=== PATIENT | female | born 1985 | race Caucasian/White ===

== ENCOUNTER 2017-07-20 04:48 | Inpatient (IN) | payer OTHER ==
[~2017-07-20] VITALS: Ht 152.4 cm; Wt 62.0 kg
[~2017-07-20 04:48] MED LIST: AMPHETAMINE SAL20 MG PO; OMEPRAZOLE40 MG PO; ONDANSETRON ODT4 MG PO; PAROXETINE HCL40 MG PO; PRENA1 CHEW TA1.4 MG PO; THERALITH XR T1 EACH PO
--- NOTE | 2017-07-21 12:54 | PR ---
[facility] [address] [place], [place] [address] Signed PP Progress Notes Datetime Report Generated by CPN: 07/21/2017 12:54 SUBJECTIVE: [id number] Pain: Within normal limits Nausea/Vomiting: Denies Flatus: Yes Bowel Movement: Yes Vital Signs: [id number] Vital Signs: Reviewed; Within Normal Limits EXAM: [id number] Cardiovascular: Normal Respiratory: Normal Abdomen/Uterus: Normal Lochia: Normal Vulva/Perineum: Normal Breasts: Normal CVA Tenderness: Normal Extremities: Normal Incision: Not Applicable Progress: Normal IMPRESSION/PLAN/PROCEDURES: [id number] Impression: Normal progression Plan: Discharge Procedures: None Progress Notes: patient doing well. Wanting to go home today. Signing Physician: Litzy Valle MD CC: *Electronically Signed* 07/21/17 1254 LITZY VALLE MD PATIENT NAME: JAM MATT PROGRESS NOTE DATE OF : 89 PHYSICIAN: LITZY VALLE MD RPT #: [id number] REPORT IS CONFIDENTIAL AND NOT TO BE RELEASED WITHOUT AUTHORIZATION
== END 2017-07-21 14:50 | disposition home or self-care (01) | DRG 774 ==
LOC: FBCO 04:48 → FBC 05:20
PROVIDERS: ADMIT Obstetrics & Gynecology
PROC: 10E0XZZ Delivery of Products of Conception, External Approach (ICD-10-PCS; principal; 2017-07-20)
DX: O45.8X3 Other premature separation of placenta, third trimester (principal); Z37.0 Single live birth; Z3A.38 38 weeks gestation of pregnancy
CPT/HCPCS: 01960; 36415; 85027; J2590; J3010; J7120